=== PATIENT | male | born 1935 | race Caucasian/White ===

== ENCOUNTER 2016-07-02 09:50 | Observation (INO) | payer MEDICARE, BC ==
[~2016-07-02] VITALS: Ht 185.4 cm; Wt 100.4 kg
[2016-07-02] VITALS (10 sets, daily range): BP systolic 104–121; BP diastolic 55–76
[2016-07-02 11:06] LABS: LYMPH % 32.2 % (10-50)
[2016-07-02 11:08] LABS: BUN 38 mg/dL (7-18); GFR (ESTIMATED) 30 ML/MIN (>60)
[2016-07-02] MEDS ORDERED: ASPIRIN 81MG TA81 MG PO (21:30)
[2016-07-02] MEDS ORDERED: DOFETILIDE125 MCG PO (21:35)
[2016-07-02] MEDS ORDERED: ENTRESTO 24 MG1 EACH PO (21:38)
[2016-07-02] MEDS ORDERED: LASIX 40MG. TAB40 MG PO (21:38)
[2016-07-02] MEDS ORDERED: XALATAN 0.005%2.5 M1 OP (21:40)
[2016-07-02] MEDS ORDERED: LEVOTHYROXINE0.15 MG PO (21:41)
[2016-07-02] MEDS ORDERED: VITAMIN D32000 UNI1 PO (21:42)
[2016-07-03] VITALS (12 sets, daily range): BP systolic 107–131; BP diastolic 65–91
[2016-07-03 08:51] LABS: HEMOGLOBIN 12.8 g/dL (14.1-18.0); LYMPH # 0.8 K/mm3 (0.7-4.5); LYMPH % 19.5 % (10-50)
--- NOTE | 2016-07-03 10:08 | PHARMACY CLINIC NOTE ---
Patient Demographics Patient Demographics Admission date: 07/02/16 Date: 07/03/16 Time: 1007 Allergies Coded Allergies: amiodarone (-- 07/02/16) HEIGHT- FT: 6 IN: 1.00 K.355 VTE General Information Labs: Laboratory Tests 07/03 07/02 0840 1055 Hematology Hgb (14.1 - 18.0 g/dL) 12.8 L 14.0 L Hct (42.0 - 52.0 %) 42.2 45.7 Plt Count (142 - 424 K/mm3) 138 L 151 Disclaimer The following section includes nursing documentation that has been pulled in for pharmacy review. Patient's VTE score: 1 Patient's VTE Risk: VERY LOW RISK Clinical trial participant? No VTE prophylaxis NQF [id number] VTE prophylaxis ordered? Yes Type of prophylaxis/treatment: VIDHI at 1009
--- NOTE | 2016-07-03 12:23 | RADIOLOGY REPORT PS360 ---
CHEST-PORTABLE ORDERING PHYSICIAN : Jigar Sharma MD PATIENT AGE: 81 years GENDER: Male INDICATION: POST PACE MAKER TECHNIQUE: AP portable upright chest volume pacemaker defibrillator placement. COMPARISON: FINDINGS Pacemaker overlies left chest. Multiple leads are evident of some form. Old pacer. Somewhat difficult to evaluate such. Cardiomegaly normal pulmonary vascularity. No CHF. Likely AED pad overlying medial right chest. There is some other extrinsic device or vague density overlying the lower left chest The lungs appear clear with no acute findings. No pneumothorax. No focal fusion appreciable on this semierect study. IMPRESSION: Lungs clear no acute findings. Cardiomegaly. Normal pulmonary vascularity Pacemaker overlying left upper chest. Other overlying devices including likely AED pad medial right chest
--- NOTE | 2016-07-03 12:25 | RADIOLOGY REPORT PS360 ---
PACEMAKER/DEFIBRILLATOR ORDERING PHYSICIAN : Jigar Sharma MD PATIENT AGE: 81 years GENDER: Male INDICATION: ARRYTHMIA . 2 fluoroscopic spot images were obtained during the course placement of pacemaker. First images submitted show pacemaker wires passing through the left subclavian vein. The second shows the upper chest and neck. Nonspecific.
[2016-07-04 03:43] VITALS: BP 136/78
[2016-07-04 08:30] VITALS: BP 137/68
[2016-07-04 09:00] VITALS: BP 137/68
[2016-07-04 12:00] VITALS: BP 117/71
[2016-07-04 13:48] VITALS: BP 117/71
--- NOTE | 2016-07-09 12:14 | Operative Note ---
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 A scalpel was used to excise the scar and then dissect down to the old defibrillator. The defibrillator was removed from the pocket. The left subclavian vein was accessed via the Seldinger technique and a 8 Bengali sheath was placed into the left subclavian vein. Over 15 wires were used in order to advance the left ventricular lead into the distal aspect of the coronary sinus. There is significant scar tissue in the area was so small despite every technique I could perform a was still unable to advance the LV lead. After 5 1/2 hours of continuous work on this patient in order to place the new LV lead I was unable to obtain a satisfactory position. After 5 1/2 hours and only after every single available coronary wire was exhausted in the hospital I then decided to abandon the procedure. Ancef was used to flush the pocket and the old generator was reinserted and attached to the fascia. Monocryl was used to close the subcutaneous layers wall laron were used to close the cutaneous layer. Patient transferred the postop holding area in stable condition. I was able to cannulate the left coronary sinus and perform left coronary sinus sonography and did have the lead into the left coronary sinus but unable to capture adequate thresholds with a new LV lead. Impression: Successful removal of old AICD generator Successful replacement of old AICD generator 5 1/2 hours of continuous surgical procedure by me Successful cannulation of the left coronary sinus Left coronary sinus venogram Placement of left ventricular sensing and pacing lead into the left coronary sinus which unsuccessfully paced patient and was therefore removed Interrogation: see report Serial number: No additional lead or generator was placed therefore all of the chronic apparatus remain in place Plan: Routine post op care at 5271
== END 2016-07-04 13:48 | disposition home or self-care (01) ==
LOC: SDC 09:50 → 2ND 18:14
PROVIDERS: Internal Medicine
PROC: 0JH608Z Insertion of Defibrillator Generator into Chest Subcutaneous Tissue and Fascia, Open Approach (ICD-10-PCS; 2016-07-02)
PROC: 4B02XTZ Measurement of Cardiac Defibrillator, External Approach (ICD-10-PCS; 2016-07-02)
PROC: 0JPT0PZ Removal of Cardiac Rhythm Related Device from Trunk Subcutaneous Tissue and Fascia, Open Approach (ICD-10-PCS; principal; 2016-07-02 09:45)
DX: Z45.02 Encounter for adjustment and management of automatic implantable cardiac defibrillator (principal); I50.22 Chronic systolic (congestive) heart failure; I42.9 Cardiomyopathy, unspecified; T82.190A Other mechanical complication of cardiac electrode, initial encounter
CPT/HCPCS: C1725; C1769; G0378; J2405; J3370